=== PATIENT | female | born 1985 ===

== ENCOUNTER 2020-08-10 05:08 | Inpatient (IN) | payer MEDICAID, OTHER, SELFPAY ==
[2020-08-10 06:13] LABS: #Eosinphils 0.2 thou/uL (0.0-0.7); #Lymphocytes 2.8 thou/uL (1.20-3.40); #Monocytes 0.9 thou/uL (0.11-0.59); #Neutrophils 9.2 thou/uL (1.40-6.50); %Basophils 0.3 % (0.0-1.0); %Eosinophils 1.8 % (0.0-10.0); %Lymphocytes 21.3 % (21.0-51.0); %Monocytes 6.7 % (0.0-10.0); %Neutrophils 69.8 % (42.0-75.0); Hemoglobin 7.6 g/dL (12.0-16.0); Hypochromia MODERATE=16-30 cells (100X) (0-5/hpf); MDiff Complete? YES; Mean Corpuscular HGB CONC 29.8 g/dL (32.0-36.0); Mean Corpuscular Hemoglobin 18.9 pg (27.0-31.0); Mean Corpuscular Volume 63.2 fL (78.0-98.0); Mean Platelet Volume 7.5 fL (7.4-10.4); Microcytosis SLIGHT = 6-15 cells (100X) (0-5/hpf); Platelet Count 331 thou/uL (130-400); Platelet Morphology Comment Appears Adequate; RBC Distribution Width 21.5 % (11.5-14.5); Red Blood Cell (RBC) Count 4.04 mill/uL (4.20-5.40); Reflex for Review?? YES; White Blood Cell (WBC) Count 13.2 thou/uL (4.8-10.8)
[2020-08-10] MEDS ORDERED: Promethazine HCl 25 MG/ML VIAL IM PRN (06:13)
[2020-08-10] MEDS ORDERED: Ondansetron PF 4 MG/2 ML Vial IVP PRN ×2 (06:13→09:10)
[2020-08-10] MEDS ORDERED: hydrALAZINE 20 MG/ML VIAL SLOW IVP PRN ×2 (06:13→09:10)
[2020-08-10] MEDS ORDERED: Misoprostol 100 MCG TAB VAG SCH (06:45)
[2020-08-10] MEDS ORDERED: Misoprostol 200 MCG TAB ONE ×3 (06:48→08:58)
[2020-08-10 07:00] LABS: HBSAg Index 0.15 S/CO (0-0.99); HIV (1/2) Antibody/Antigen Non-Reactive (NonReactive); Hep B Surf Ag Non-Reactive S/CO (NonReactive); Syphilis Antibody Nonreactive (Nonreactive); Syphilis Antibody Index 0.03 S/CO (<1.00 Non-Reactive)
[2020-08-10] MEDS ORDERED: Ibuprofen 600 MG TAB PO SCH (07:00)
[2020-08-10 07:27] LABS: Hemoglobin 6.8 g/dL (12.0-16.0); Mean Corpuscular HGB CONC 31.7 g/dL (32.0-36.0); Mean Corpuscular Hemoglobin 20.1 pg (27.0-31.0); Mean Corpuscular Volume 63.5 fL (78.0-98.0); Mean Platelet Volume 7.3 fL (7.4-10.4); Platelet Count 274 thou/uL (130-400); RBC Distribution Width 21.9 % (11.5-14.5); White Blood Cell (WBC) Count 15.6 thou/uL (4.8-10.8)
[2020-08-10 07:41] VITALS: BMI 33.8
[2020-08-10] MEDS ORDERED: Fentanyl 100 MCG/2 ML VIAL ONE (08:04)
[2020-08-10] MEDS ORDERED: Midazolam HCl 2 mg/2 ml Vial ONE (08:04)
[2020-08-10] MEDS ORDERED: Ketamine 50 MG/ML (10ML VIAL) ONE (08:05)
[2020-08-10] MEDS ORDERED: Albumin 5% 0 ML ONE (08:05)
[2020-08-10] MEDS ORDERED: Oxytocin 10 UNITS/ML VIAL ONE (08:57)
[2020-08-10] MEDS ORDERED: Bisacodyl 10 MG SUPP PR PRN (09:10)
[2020-08-10] MEDS ORDERED: Methylergonovine 0.2 MG/ML VIAL IM PRN (09:10)
[2020-08-10] MEDS ORDERED: Adacel (T-DAP) 0.5 ML SYRINGE IM ONE (09:10)
[2020-08-10] MEDS ORDERED: Milk Of Magnesia 30 ML UDCUP PO PRN (09:10)
[2020-08-10] MEDS ORDERED: Benzocaine-Menthol 82.5 ML CAN TOP PRN (09:10)
[2020-08-10] MEDS ORDERED: diphenhydrAMINE 25 MG CAP PO PRN (09:10)
[2020-08-10] MEDS ORDERED: Zolpidem Tartrate 5 MG TAB PO PRN (09:10)
[2020-08-10] MEDS ORDERED: HYDROcodone/Acetaminophen 5/325 mg Tablet PO PRN ×2 (09:10)
[2020-08-10] MEDS ORDERED: NS w/ Oxytocin 30 units 500 ML IV SCH ×2 (09:15→09:45)
[2020-08-10] MEDS ORDERED: Promethazine HCl 25 MG/ML VIAL SLOW IVP PRN (09:28)
[2020-08-10] MEDS ORDERED: Ondansetron HCl/PF 4 MG/2 ML Vial IVP PRN (09:28)
[2020-08-10 12:52] LABS: Hemoglobin 8.4 g/dL (12.0-16.0); Mean Corpuscular HGB CONC 32.3 g/dL (32.0-36.0); Mean Corpuscular Hemoglobin 23.2 pg (27.0-31.0); Mean Platelet Volume 7.9 fL (7.4-10.4); Platelet Count 230 thou/uL (130-400); RBC Distribution Width 25.5 % (11.5-14.5); Red Blood Cell (RBC) Count 3.61 mill/uL (4.20-5.40); White Blood Cell (WBC) Count 16.1 thou/uL (4.8-10.8)
[2020-08-10] MEDS ORDERED: Ibuprofen 800 MG TAB PO SCH (14:00)
[2020-08-10] MEDS ORDERED: Ferrous Sulfate 325 MG TAB PO SCH (17:00)
[2020-08-10] MEDS ORDERED: CEFAZOLIN 2 GM in Premix Bag 1 BAG IVPB SCH (17:00)
[2020-08-10] MEDS ORDERED: Docusate Calcium (SURFAK) 240 MG CAP PO SCH (21:00)
[2020-08-11] MEDS ORDERED: FLU VACC QS2020-21(6MOS UP)/PF 60 MCG/0.5 ML SYRINGE IM ONE (08:30)
== END 2020-08-10 17:21 | disposition home or self-care (01) | DRG 770 ==
LOC: ERS 05:08 → L&D 05:30
PROVIDERS: ADMIT Obstetrics & Gynecology; ATTEND Obstetrics & Gynecology
PROC: 30233N1 Transfusion of Nonautologous Red Blood Cells into Peripheral Vein, Percutaneous Approach (ICD-10-PCS; principal; 2020-08-10)
PROC: 10D17ZZ Extraction of Products of Conception, Retained, Via Natural or Artificial Opening (ICD-10-PCS; 2020-08-10)
DX: O03.4 Incomplete spontaneous abortion without complication (principal); O72.1 Other immediate postpartum hemorrhage; Z3A.18 18 weeks gestation of pregnancy; D64.9 Anemia, unspecified; O03.0 Genital tract and pelvic infection following incomplete spontaneous abortion; B96.0 Mycoplasma pneumoniae [M. pneumoniae] as the cause of diseases classified elsewhere; Z90.3 Acquired absence of stomach [part of]; Z98.84 Bariatric surgery status; O99.820 Streptococcus B carrier state complicating pregnancy
CPT/HCPCS: 36415; 36430; 51702; 85025; 85060; 86780; 86850; 86900; 86901; 87340; 87389; 88300; 88305; 99285; J0690; J2250; J3010; P9016; P9045